=== PATIENT | female | born 1975 | race Caucasian/White ===

== ENCOUNTER 2016-12-16 05:40 | Emergency (ER) | payer OTHER ==
[~2016-12-16] VITALS: Ht 160 cm; Wt 79.4 kg
[2016-12-16] MEDS ORDERED: ZANT150T2 PO (06:17)
[2016-12-16] MEDS ORDERED: TYLE325T PO (06:17)
[2016-12-16] MEDS ORDERED: PREN1CAP28 PO (06:17)
--- NOTE | 2016-12-16 06:33 | PD ---
HPI Chief Complaint Contractions Date Seen: December 16, 2016 Travel History International Travel<30 Days: No Contact w/Intl Traveler<30Days: No Known Affected Area: No History of Present Illness HPI The patient is a 41-year-old white female a 2 now 37 weeks tomorrow who presents complaining of contractions that began last evening at 10 her time is continued through the night and now every 3-5 minutes and more regular. She describes as painful. No leakage or bleeding. Patient sees Dr. Rawls for care and she's to see him today scheduled. heart rate tracing is reactive and she is nikhil every 3 minutes. Para: 2 : 5 History Obstetric History Obstetric History 2 vaginal deliveries , 2 ABs Social History Alcohol Use: No Tobacco Use: No Substance Abuse: No Allergies-Medications (Allergen,Severity, Reaction): Coded Allergies: No Known Allergies (Unverified , 12/16/16) Home Meds Reported Medications Mv & Min W/Fe Fumarat ( Multi + Dha 27-0.8-250 mg)1 Cap Cap1 Cap PO DAILY 12/16/16 Acetaminophen (Tylenol)325 Mg [id number] Mg PO Q6H PRN (PAIN SCALE 1 TO 4) Ref 0 12/16/16 Ranitidine (Zantac)150 Mg Tab75 Mg PO DAILY #30 TAB Ref 0 12/16/16 Review of Systems General / Constitutional: No: Fever, Weight Gain, Chills, Other Eyes: No: Diploplia, Blurred Vision, Visual changes, Pain, Photophobia HENT: No: Headaches, Vertigo, Lightheadedness Cardiovascular: No: Irregular Rhythm, Chest Pain or Discomfort, Palpitations, Tachycardia, Syncope, Varicosities, Edema, Cyanosis Respiratory: No: Cough, Short of Breath, Other Gastrointestinal: Abdominal Pain, No: Nausea, Vomiting, Diarrhea Genitourinary: No: Decreased Urinary Output, Oliguria Musculoskeletal: No: Limited ROM, Weakness, Cramping, Edema, Pain Skin: No Rash, No Itching, No Dryness, No Lumps, No Change in Pigmentation, No Change in Nails, No Alopecia, No Lesions Neurologic: No: Weakness, Dizziness, Syncope, Focal Abnormalities, Coordination Problem, Headache, Slurred Speech, Seizures Psychiatric: No: Depression, Suicidal Ideations, Homicidal Ideation Endocrine: No: Heat Intolerance, Cold Intolerance, Polydipsia, Polyuria, Other Physical Exam Narrative GENERAL: Well-nourished, well-developed patient. SKIN: Warm and dry. HEAD: Normocephalic and atraumatic. EYES: No scleral icterus. No injection or drainage. ENT: No nasal drainage noted. Mucous membranes pink. Airway patent. NECK: Supple, trachea midline. No JVD. CARDIOVASCULAR: Regular rate and rhythm without murmurs, gallops, or rubs. RESPIRATORY: Breath sounds equal bilaterally. No accessory muscle use. BREASTS: Bilateral exam showed no masses , no retractions, no nipple discharge. ABDOMEN/GI: Abdomen soft, non-tender, bowel sounds present, no rebound, no guarding Gravid to [37-] weeks size Fundal Height: [36-] GENITOURINARY: External Genitalia: intact and normal in appearance BUS glands: [-] Cervix: [-] Dilatation: [0-] Effacement: [-50] Station: [-3] Presentation: [vtx-] Membranes: [intact ] Uterine Contractions: [ q 4 min-] FHT's: Category: [1-] Baseline: [-144] Reactive: [yes-] Variability: [-mod] Decels: [-0] EXTREMITIES: No cyanosis or edema. BACK: Nontender without obvious deformity. No CVA tenderness. NEUROLOGICAL: Awake and alert. Motor and sensory grossly within normal limits. Five out of 5 muscle strength in all muscle groups. Normal speech. MDM Interpretation(s) This patient is 41-year-old white female at 37 weeks tomorrow presents combining of contractions. Denies bleeding or leakage of fluid. heart rate tracing is reactive and she is nikhil every 3-4 minutes. However cervix is still closed 50% effaced and -3. Patient is to see Dr. Rawls later today. I recommended that she be at bedrest at home with Tylenol use liberally increase her fluids use a heating pad on low or hot bath for relief and return if her pains worsen Plan Plan to discharge home at this time return for worsening symptoms leakage or bleeding. Otherwise she is to see her OB provider today as scheduled Diagnosis Diagnosis: Primary Impression: False labor before 37 completed weeks of gestation during in third trimester, antepartum Disposition: DISCHARGE HOME Condition: Stable Viktor Alonso II, MD December 16, 2016 06:32
== END 2016-12-16 06:39 | disposition home or self-care (01) ==
LOC: HOBED 05:40
DX: O47.03 False labor before 37 completed weeks of gestation, third trimester (principal); Z3A.36 36 weeks gestation of pregnancy
CPT/HCPCS: 99284

== ENCOUNTER 2016-12-31 07:28 | Inpatient (IN) | payer OTHER ==
[2016-12-31] VITALS (72 sets, daily range): BP systolic 79–148; BP diastolic 42–100; PULSE 63–119; RESP 16–20; TEMP 97.6–98.6; O2SAT 97–99
[~2016-12-31] VITALS: Ht 160 cm; Wt 81.6 kg
[~2016-12-31 07:28] MED LIST: PREN1CAP28 PO; TYLE325T PO; ZANT150T2 PO
[2016-12-31] MEDS ORDERED: LACTATED RINGER'S 1000 ML INJ 1,000 ML IV PRN (08:53)
--- NOTE | 2016-12-31 08:53 | PD ---
HPI Chief Complaint leakage of fluid Travel History International Travel<30 Days: No Contact w/Intl Traveler<30Days: No Known Affected Area: No History of Present Illness HPI at 39w 0d presents with c/o LOF- clear at 0200. Denies contractions/VB. Reports good FM. care with Dr. Rawls. History Past Medical History Medical History: Denies Significant Hx Past Surgical History Surgical History: No Previous Surgery Family History Family History: Negative Social History Alcohol Use: No Tobacco Use: No Substance Abuse: No Allergies-Medications (Allergen,Severity, Reaction): Coded Allergies: No Known Allergies (Unverified , 12/31/16) Home Meds Reported Medications Mv & Min W/Fe Fumarat ( Multi + Dha 27-0.8-250 mg)1 Cap Cap1 Cap PO DAILY 12/16/16 Acetaminophen (Tylenol)325 Mg [id number] Mg PO Q6H PRN (PAIN SCALE 1 TO 4) Ref 0 12/16/16 Ranitidine (Zantac)150 Mg Tab75 Mg PO DAILY #30 TAB Ref 0 12/16/16 Review of Systems Except as stated in HPI: all other systems reviewed are Neg Physical Exam AFVSS BP 140/89 Narrative GENERAL: Well-nourished, well-developed patient. SKIN: Warm and dry. HEAD: Normocephalic and atraumatic. EYES: No scleral icterus. No injection or drainage. ENT: No nasal drainage noted. Mucous membranes pink. Airway patent. NECK: Supple, trachea midline. No JVD. CARDIOVASCULAR: Regular rate and rhythm without murmurs, gallops, or rubs. RESPIRATORY: Breath sounds equal bilaterally. No accessory muscle use. BREASTS: Bilateral exam showed no masses , no retractions, no nipple discharge. ABDOMEN/GI: Abdomen soft, non-tender, bowel sounds present, no rebound, no guarding Gravid to [-] weeks size Fundal Height: [-] GENITOURINARY: External Genitalia: intact and normal in appearance BUS glands: [-] Cervix: [-] Dilatation: [1] Effacement: [60] Station: [3] Presentation: [-] Membranes: [intact or ruptured] Uterine Contractions: [none] FHT's: Category: [1] Baseline: [130s] Reactive: [yes] Variability: [moderate] Decels: [none] EXTREMITIES: No cyanosis or edema. BACK: Nontender without obvious deformity. No CVA tenderness. NEUROLOGICAL: Awake and alert. Motor and sensory grossly within normal limits. Five out of 5 muscle strength in all muscle groups. Normal speech. Data Data Orders Ob (2e) Additional Admit Info (12/31/16 08:41) MDM Interpretation(s) at 39w 0d PROM, elevated BP. Plan Will admit. Pre Eclampsia labs ordered. Dr. Rawls notified. Diagnosis Diagnosis: Primary Impression: 39 weeks gestation of Additional Impressions: PROM (premature rupture of membranes) Hypertension affecting in third trimester Tina Hooker MD Dec 31, 2016 08:53
[2016-12-31] MEDS ORDERED: LIDOCAINE HCL 1% 50 ML VIAL I-DERMAL PRN (09:00)
[2016-12-31] MEDS ORDERED: MINERAL OIL 10 ML VIAL TOPICAL PRN (09:00)
[2016-12-31] MEDS ORDERED: CITRIC ACID-SODIUM CITRATE LIQ 30 ML UDC PO SCH (09:00)
[2016-12-31] MEDS ORDERED: LIDOCAINE HCL 1% 50 ML VIAL INFIL PRN (09:00)
[2016-12-31] MEDS ORDERED: OXYTOCIN 30 UNITS-500ML PREMIX 500 ML IV ONE ×2 (09:00→21:45)
[2016-12-31] MEDS ORDERED: SODIUM CHLORID 0.9% 500 ML INJ 500 ML IV PRN (09:00)
[2016-12-31 09:09] LABS: BASOPHIL % 0.5 % (0.0-2.0); EOSINOPHIL % 0.5 % (0.0-4.0); HEMO FLAGS DIFF FINAL; LYMPH % 15.4 % (9.0-44.0); LYMPHOCYTE # 1.4 TH/MM3 (1.0-4.8); MEAN CELL VOLUME 77.2 FL (80.0-100.0); MEAN CORPUSCULAR HEMOGLOBIN 25.7 PG (27.0-34.0); MEAN CORPUSCULAR HGB CONC 33.2 % (32.0-36.0); MONO % 6.1 % (0.0-8.0); NEUT % 77.5 % (16.0-70.0); PLATELET COUNT 211 TH/MM3 (150-450); RED BLOOD COUNT 4.01 MIL/MM3 (4.00-5.30); WHITE BLOOD COUNT 9.1 TH/MM3 (4.0-11.0)
[2016-12-31 09:10] LABS: BLOOD, URINE MOD (NEG); COMMENT (UR) CULT NOT INDICATED; CULTURE IF INDICATED CULT NOT INDICATED; GLUCOSE,URINE NEG (NEG); KETONE, URINE NEG (NEG); MUCUS URINE FEW /lpf (OCC); NITRITE,URINE NEG (NEG); PH, URINE 6.5 (5.0-8.5); SQUAMOUS EPITHELIAL CELL URINE 1 /hpf (0-5); URINE COLOR YELLOW (YELLW/STRAW)
[2016-12-31] MEDS ORDERED: SODIUM CHLOR 0.9% 1000 ML INJ 1,000 ML IV PRN (09:13)
[2016-12-31 09:30] LABS: ANION GAP 11 MEQ/L (5-15); AST (GOT) 15 U/L (15-37); BICARBONATE 21.2 MEQ/L (21.0-32.0); BLOOD UREA NITROGEN 11 MG/DL (7-18); CHLORIDE 105 MEQ/L (98-107); GLOMERULAR FILTRATION RATE 77 ML/MIN (>89); SODIUM (NA) 137 MEQ/L (136-145)
[2016-12-31 09:32] LABS: LDH SERUM 165 U/L (84-246); URIC ACID 6.6 MG/DL (2.6-6.0)
[2016-12-31 09:36] LABS: ALKALINE PHOSPHATASE 143 U/L (45-117); ALT (GPT) 13 U/L (10-53); TOTAL BILIRUBIN ADULT 0.6 MG/DL (0.2-1.0)
[2016-12-31] MEDS: LACTATED RINGER'S 1000 ML INJ 1,000 ML IV SCH ×3 (10:07→14:29)
[2016-12-31] MEDS ORDERED: OXYTOCIN 30 UNITS/NS 500ML PREMIX IV SCH (10:30)
[2016-12-31] MEDS ORDERED: fentaNYL 2MCG-BUPIV 0.125% INJ 100 ML ONE (13:13)
[2016-12-31] MEDS ORDERED: ePHEDrine/NS 25 MG/5 ML SYR ONE (13:13)
[2016-12-31] MEDS ORDERED: DO NOT ADMINISTER ANTICOAGULANTS PRN (15:30)
[2016-12-31] MEDS ORDERED: ePHEDrine/NS 25 MG/5 ML SYR IV PRN (15:30)
[2016-12-31] MEDS ORDERED: NO SYSTEM NARCOTICS PRN (15:30)
[2016-12-31] MEDS: fentaNYL 2MCG-BUPIV 0.125% 100 ML EPIDURAL SCH ×2 (19:10→19:11)
[2016-12-31] MEDS ORDERED: LIDOCAINE HCL 1.5% PF SOLN 20 ML AMP ONE (19:21)
[2016-12-31] MEDS ORDERED: ONDANSETRON HCL 4 MG/2 ML VIAL ONE (20:06)
[2016-12-31] MEDS ORDERED: MORPHINE SULFATE PF 5 MG/10 ML VIAL ONE (20:06)
[2016-12-31] MEDS ORDERED: OXYTOCIN 10 UNIT/ML AMP ONE (20:07)
[2016-12-31] MEDS ORDERED: ceFAZolin 2 GM PREMIX 50 ML IV SCH (20:15)
--- NOTE | 2016-12-31 21:40 | HHI.HP ---
HPI Chief Complaint leaking fluid Date Seen: Dec 31, 2016 Travel History International Travel<30 Days: No Contact w/Intl Traveler<30Days: No Known Affected Area: No History of Present Illness HPI Patient is a 41 year old at 39-0/7 weeks gestation who presents today with leaking of fluid. The fluid was clear and it started leaking at 0200. She denies any vaginal bleeding or discharge. No contractions. Positive movement. History Past Medical History Medical History: Denies Significant Hx Obstetric History Obstetric History x 2 Past Surgical History Surgical History: No Previous Surgery Family History Family History: Negative Social History Alcohol Use: No Tobacco Use: No Substance Abuse: No Allergies-Medications (Allergen,Severity, Reaction): Coded Allergies: No Known Allergies (Unverified , 12/31/16) Home Meds Reported Medications Mv & Min W/Fe Fumarat ( Multi + Dha 27-0.8-250 mg)1 Cap Cap1 Cap PO DAILY 12/16/16 Acetaminophen (Tylenol)325 Mg [id number] Mg PO Q6H PRN (PAIN SCALE 1 TO 4) Ref 0 12/16/16 Ranitidine (Zantac)150 Mg Tab75 Mg PO DAILY #30 TAB Ref 0 12/16/16 Review of Systems Except as stated in HPI: all other systems reviewed are Neg General / Constitutional: No: Fever, Chills Eyes: No: Blurred Vision, Visual changes HENT: No: Headaches Cardiovascular: No: Chest Pain or Discomfort Respiratory: No: Short of Breath Gastrointestinal: No: Nausea, Abdominal Pain Genitourinary: Discharge, No: Pelvic Pain, Vaginal Bleeding Musculoskeletal: No: Edema Neurologic: No: Headache Psychiatric: No: Substance Abuse Physical Exam Vital Signs Date Time Temp Pulse Resp B/P Pulse Ox O2 Delivery O2 Flow Rate FiO2 12/31/16 19:15 20 12/31/16 19:03 97.6 12/31/16 18:25 85 12/31/16 18:20 81 12/31/16 18:20 74 131/100 12/31/16 18:15 18 12/31/16 18:15 80 12/31/16 18:10 85 12/31/16 18:05 82 12/31/16 18:00 86 125/82 12/31/16 18:00 84 12/31/16 17:55 75 12/31/16 17:50 81 17 17:45 83 17 17:41 85 125/72 17 17:40 93 17 17:35 76 17 17:34 18 17 17:30 98.6 17 17:30 77 1417 17:25 80 17 17:20 84 1417 17:20 80 131/76 17 17:15 18 12/31/16 17:15 82 12/31/16 17:10 79 12/31/16 17:05 81 12/31/16 17:01 95 137/65 12/31/16 17:00 84 12/31/16 16:55 86 12/31/16 16:50 83 12/31/16 16:45 77 12/31/16 16:42 17 12/31/16 16:40 75 12/31/16 16:35 71 12/31/16 16:30 71 12/31/16 16:10 69 18 12/31/16 16:05 68 12/31/16 16:04 70 128/75 12/31/16 16:00 75 12/31/16 15:55 70 12/31/16 15:50 71 12/31/16 15:45 73 12/31/16 15:25 74 17 12/31/16 15:24 72 124/71 17 15:21 63 12/31/16 15:20 67 12/31/16 15:15 18 12/31/16 15:15 66 12/31/16 15:10 70 17 15:05 65 12/31/16 15:01 72 125/82 12/31/16 15:00 72 12/31/16 15:00 17 12/31/16 14:55 72 12/31/16 14:50 71 17 14:45 17 17 14:45 71 17 14:40 70 1417 14:40 74 129/66 1417 14:35 71 1417 14:30 17 1417 14:30 70 118/71 1417 14:30 69 6/14/17 14:30 98.6 12/31/16 14:25 64 12/31/16 14:21 74 118/66 12/31/16 14:20 68 12/31/16 14:15 71 12/31/16 14:15 71 121/61 12/31/16 14:12 72 117/63 12/31/16 14:10 75 12/31/16 14:10 71 126/65 12/31/16 14:05 78 122/67 12/31/16 14:05 72 12/31/16 14:01 119 123/92 12/31/16 14:00 75 12/31/16 13:55 74 12/31/16 13:55 69 125/77 12/31/16 13:51 69 132/77 12/31/16 13:50 71 12/31/16 13:45 78 148/79 12/31/16 13:45 18 12/31/16 13:45 79 12/31/16 11:32 69 123/71 Narrative GENERAL: Well-nourished, well-developed patient. SKIN: Warm and dry. HEAD: Normocephalic and atraumatic. EYES: No scleral icterus. No injection or drainage. ENT: No nasal drainage noted. Mucous membranes pink. Airway patent. NECK: Supple, trachea midline. No JVD. CARDIOVASCULAR: Regular rate and rhythm without murmurs, gallops, or rubs. RESPIRATORY: Breath sounds equal bilaterally. No accessory muscle use. ABDOMEN/GI: Abdomen soft, non-tender, bowel sounds present, no rebound, no guarding Gravid to 40 weeks size GENITOURINARY: External Genitalia: intact and normal in appearance BUS glands: normal Cervix: posterior Dilatation: 1 Effacement: 60 Station: 3 Presentation: vertx Membranes: ruptured with clear fluid Uterine Contractions: none FHT's: Category: I Baseline: 130 Reactive: + Variability: moderate Decels: none EXTREMITIES: No cyanosis or edema. BACK: Nontender without obvious deformity. No CVA tenderness. NEUROLOGICAL: Awake and alert. Motor and sensory grossly within normal limits. Normal speech. Data Data Vital Signs Reviewed: Yes Orders Ob (2e) Additional Admit Info (12/31/16 08:41) Admit To Inpatient (12/31/16 ) Code Status (12/31/16 08:53) Vital Signs (Adult) .Per protocol (12/31/16 08:53) Heart (12/31/16 08:53) Amnioinfusion (12/31/16 08:53) Diet Npo (12/31/16 Breakfast) Lactated Ringer's 1000 Ml Inj (Lr 1000 M (12/31/16 09:00) Lactated Ringer's 1000 Ml Inj (Lr 1000 M (12/31/16 08:53) Sodium Chlorid 0.9% 500 Ml Inj (Ns 500 M (12/31/16 09:00) Sodium Chlor 0.9% 1000 Ml Inj (Ns 1000 M (12/31/16 09:13) Lidocaine 1% Inj (50 Ml) (Xylocaine 1% I (12/31/16 09:00) Citric Acid-Sodium Citrate Liq (Bicitra (12/31/16 09:00) Fentanyl Inj (Fentanyl Inj) (12/31/16 09:00) Fentanyl Inj (Fentanyl Inj) (12/31/16 09:00) Complete Blood Count With Diff (12/31/16 08:53) Hold Clot (12/31/16 08:53) Abo/Rh Blood Type (12/31/16 08:53) Urinalysis - C+S If Indicated (12/31/16 08:53) Resp Oxygen Non Rebreathe Mask (12/31/16 ) ^ Epidural / Intrathecal Infus (12/31/16 08:53) Oxytocin 30 Units-500ml Premix (Pitocin (12/31/16 09:00) Lidocaine 1% Inj (50 Ml) (Xylocaine 1% I (12/31/16 09:00) Light Mineral Oil (Muri-Lube Oil) (12/31/16 09:00) Inpatient Certification (12/31/16 ) Comprehensive Metabolic Panel (12/31/16 08:55) Ldh Serum (12/31/16 08:55) Uric Acid (12/31/16 08:55) Oxytocin 30 Units-500ml Premix (Pitocin (12/31/16 10:30) Fentanyl 2mcg-Bupiv 0.125% Inj (Fentanyl (12/31/16 13:13) Ephedrine/Ns 25 Mg/5 Ml Syr (Ephedrine/N (12/31/16 13:13) ^ Place On Chart (12/31/16 ) ^ Medication Indications (12/31/16 ) Consent (12/31/16 ) ^ No Systemic Narcotics (12/31/16 ) ^ Call Anesthesiologist (12/31/16 ) ^ Discontinue Epidural Cathete (12/31/16 ) Anticoagulant Alert (12/31/16 ) ^ Epidural Alert (12/31/16 ) Misc Nursing Information (12/31/16 15:30) Misc Nursing Information (12/31/16 15:30) Fentanyl Inj (Fentanyl Inj) (12/31/16 15:30) Fentanyl 2mcg-Bupiv 0.125% Inj (Fentanyl (12/31/16 15:30) Ephedrine/Ns 25 Mg/5 Ml Syr (Ephedrine/N (12/31/16 15:30) Lidocaine Pf 1.5% Inj (Xylocaine-Mpf 1.5 (12/31/16 19:21) Heart (12/31/16 19:58) Urinary Catheter Management DANIELITO.Q8H (12/31/16 19:58) ^ Preps (12/31/16 19:58) Scd / Rodrigo / Foot Pump DANIELITO.QSHIFT (12/31/16 19:58) ^ Ultrasound For Locatio (12/31/16 19:58) Morphine Pf Inj (Duramorph Pf 0.5 Mg/Ml (12/31/16 20:06) Ondansetron Inj (Zofran Inj) (12/31/16 20:06) Oxytocin Inj (Pitocin Inj) (12/31/16 20:07) Cefazolin 2 Gm Premix (Ancef 2 Gm Premix (12/31/16 20:15) Vital Signs (Adult) Q4HX24,Q12H (12/31/16 21:33) Activity Bed Rest (12/31/16 21:33) ^ Discontinue (01/01/17 21:33) Remove Dressing (01/01/17 21:33) ^ Binder (12/31/16 ) ^ Rhogam (12/31/16 21:33) Diet Regular Basic (01/01/17 Breakfast) Lactated Ringer's 1000 Ml Inj (Lr 1000 M (01/01/17 02:33) Oxytocin 30 Units-500ml Premix (Pitocin (12/31/16 21:45) Oxytocin 30 Units-500ml Premix (Pitocin (01/01/17 07:45) Sodium Chloride 0.9% Flush (Ns Flush) (01/01/17 09:00) Sodium Chloride 0.9% Flush (Ns Flush) (12/31/16 21:45) Simethicone Chew (Mylicon Chew) (12/31/16 21:45) Acetaminophen (Tylenol) (12/31/16 21:45) Acetaminophen Inj (Ofirmev Inj) (12/31/16 21:45) Ibuprofen (Motrin) (12/31/16 21:45) Ketorolac Inj (Toradol Inj) (12/31/16 21:45) Oxycodone-Acetamin 5-325 Mg (Percocet (12/31/16 21:45) Oxycodone-Acetamin 5-325 Mg (Percocet (12/31/16 21:45) Docusate Sodium-Senna (Staci-Colace) (12/31/16 21:45) Zolpidem (Ambien) (12/31/16 21:45) Gaxbxoq-Dubee-Akzdqdf Inj (M-M-R Ii Inj) (01/01/17 16:00) Alzj-Yef-Yjnxic (Booster) Inj (Boostrix (01/01/17 16:00) Complete Blood Count With Diff (01/01/17 06:00) Ondansetron Inj (Zofran Inj) (12/31/16 21:45) Remove Urinary Catheter .ONCE (01/01/17 21:33) Labs Laboratory Tests Test 12/31/16 12/31/16 08:00 08:23 Urine Color YELLOW Urine Turbidity CLEAR Urine pH 6.5 Urine Specific [place] 1.020 Urine Protein TRACE Urine Glucose (UA) NEG Urine Ketones NEG Urine Occult Blood MOD Urine Nitrite NEG Urine Bilirubin NEG Urine Urobilinogen 2.0 Urine Leukocyte Esterase NEG Urine RBC 1 Urine WBC 2 Urine Squamous Epithelial 1 Cells Urine Mucus FEW Microscopic Urinalysis Comment CULT NOT INDICATED White Blood Count 9.1 Red Blood Count 4.01 Hemoglobin 10.3 Hematocrit 31.0 Mean Corpuscular Volume 77.2 Mean Corpuscular Hemoglobin 25.7 Mean Corpuscular Hemoglobin 33.2 Concent Red Cell Distribution Width 16.0 Platelet Count 211 Mean Platelet Volume 8.7 Neutrophils (%) (Auto) 77.5 Lymphocytes (%) (Auto) 15.4 Monocytes (%) (Auto) 6.1 Eosinophils (%) (Auto) 0.5 Basophils (%) (Auto) 0.5 Neutrophils # (Auto) 7.0 Lymphocytes # (Auto) 1.4 Monocytes # (Auto) 0.6 Eosinophils # (Auto) 0.0 Basophils # (Auto) 0.0 CBC Comment DIFF FINAL Differential Comment Sodium Level 137 Potassium Level 4.0 Chloride Level 105 Carbon Dioxide Level 21.2 Anion Gap 11 Blood Urea Nitrogen 11 Creatinine 0.82 Estimat Glomerular Filtration 77 Rate Random Glucose 93 Uric Acid 6.6 Calcium Level 7.9 Total Bilirubin 0.6 Aspartate Amino Transf 15 (AST/SGOT) Alanine Aminotransferase 13 (ALT/SGPT) Alkaline Phosphatase 143 Lactate Dehydrogenase 165 Total Protein 6.3 Albumin 2.4 Blood Type O POSITIVE Blood Bank Comment Band and Hold HOLD CLOT IN BB Assessment/Plan Assessment and Plan 41 year old at 39-0/7 weeks gestation. 1. IUP- Category I tracing, reassuring. 2. SROM- clear fluid, augment labor as needed 3. Elevated BP- BP initially elevated at 140/89, uric acid, cmp, cbc, ua pending 4. GBS negative 5. Anticipate vaginal delivery. anastasiiaw Mel Grajeda MD R2 Dec 31, 2016 21:40
[2016-12-31] MEDS ORDERED: ACETAMINOPHEN 1000 MG/100 ML VIAL IV ONE ×2 (21:45→21:54)
[2016-12-31] MEDS ORDERED: oxyCODONE/ACETAMINOPHEN 5 MG/325 MG TAB PO PRN (21:45)
[2016-12-31] MEDS ORDERED: SODIUM CHLORIDE 0.9% FLUSH 10 ML FLUSH IV FLUSH PRN (21:45)
[2016-12-31] MEDS ORDERED: KETOROLAC TROMETHAMINE 60 MG/2 ML (IM) VIAL IM PRN (21:45)
[2016-12-31] MEDS ORDERED: ZOLPIDEM TARTRATE 5 MG TAB PO PRN (21:45)
[2016-12-31] MEDS ORDERED: ACETAMINOPHEN 325 MG TAB PO PRN (21:45)
[2016-12-31] MEDS ORDERED: DOCUSATE SODIUM 50 MG/SENNA 8.6 MG TAB PO PRN (21:45)
--- NOTE | 2016-12-31 21:49 | PD.OP ---
Operative Report Date of Surgery: Dec 31, 2016 Preoperative Diagnosis: (1) 39 weeks gestation of (2) Failure to progress in labor Postoperative Diagnosis: (1) 39 weeks gestation of (2) Failure to progress in labor Procedure: Primary Low Transverse Section Surgeon: Dr. Sreedhar Rawls Tuyere Fitter(s): Cassie Watson and Jesica Hernández Resident Surgeon: Dr. Mel Fraser PGY-2 Operation and Findings: Preoperative Diagnosis: 1. Failure to Progress in Labor 2. Intrauterine at 39-0/7 weeks gestation Postoperative Diagnosis: 1. Failure to Progress in Labor 2. Intrauterine at 39-0/7 weeks gestation Procedure Primary low transverse section. Anesthesia Spinal Surgeon Sreedhar Rawls MD Co-Surgeon Mel Fraser MD Findings Normal male infant 3940g with Apgars 8 and 9. Normal fallopian tubes, normal ovaries, normal uterus. Complications None. Counts Correct Estimated Blood Loss 800mL Fluids Crystalloids. Disposition The patient tolerated procedure well, went to recovery room in good condition. Procedure in Detail The patient was taken to the operating room, identified by name band and verbally given a spinal anesthetic, prepped and draped in the usual sterile fashion for a primary section. Time-out was taken. A Pfannenstiel incision was made. The incision as taken down to the fascia. The fascia was taken off the rectus muscles by blunt and sharp dissection. The rectus muscles were spread bluntly and the peritoneum entered under direct vision without difficulty. The incision was extended with care to avoid the urinary bladder. The lower uterine segment was identified and a bladder flap was created in the usual fashion, pushing the peritoneum off the bladder. The incision on the uterus was made in a transverse manner and taken down in the midline until the uterine cavity was entered. Clear fluid was noted and the incision was extended with the surgeon's fingers. The fetus was noted to be in vertex position. The infant was subsequently delivered atraumatically. The cord was doubly clamped and cut after a 45-second wait period. The baby was handed to the resuscitation team present. The placenta was removed manually after cord blood was taken and the uterus was curettaged twice with a wet lap. The uterus was delivered from the abdomen. The uterine incision was found to be extended inferiorly and laterally and was repaired with 0 Vicryl. The rest of the uterine incision was then repaired with a 0 Vicryl in a running fashion in two layers, the second layer imbricating the first. The cul-de-sac and gutters were cleaned of blood and debris, the uterus delivered back into the abdomen. The incision was dry. At this point the rectus muscles were reapproximated with 0 Vicryl in a running fashion. The fascia was repaired with 0 Vicryl in a running fashion. The subcu was repaired with 3-0 Vicryl in a running fashion and the skin was repaired with 4-0 Monocryl in a subcuticular manner. She tolerated the procedure well and went to the recovery room in good condition. Mel Fraser MD R2 Dec 31, 2016 21:49
[2016-12-31] MEDS ORDERED: PROPOFOL 200 MG/20 ML AMP IV ONE (22:05)
[2016-12-31] MEDS ORDERED: LIDOCAINE 2%/EPINEPHrine PF 1:200,000 20ML SDV OTHER ONE (22:05)
[2016-12-31] MEDS ORDERED: DEXAMETHASONE SOD PHOS 4 MG/ML VIAL IV ONE (22:05)
[2016-12-31] MEDS ORDERED: LACTATED RINGER'S 1000 ML INJ 1,000 ML IV ONE (22:05)
[2017-01-01] MEDS ORDERED: LACTATED RINGER'S 1000 ML INJ 1,000 ML IV SCH (02:33)
[2017-01-01] MEDS: ONDANSETRON HCL 4 MG/2 ML VIAL IV PUSH PRN ×2 (03:58→07:58)
[2017-01-01 04:00] VITALS: BP 106/88; PULSE 84; RESP 20; TEMP 97.9
[2017-01-01 05:51] VITALS: RESP 16
[2017-01-01 05:55] LABS: AUTOMATED NEUTROPHIL # 13.7 TH/MM3 (1.8-7.7); BASOPHIL % 0.2 % (0.0-2.0); LYMPH % 4.1 % (9.0-44.0); LYMPHOCYTE # 0.6 TH/MM3 (1.0-4.8); MEAN CELL VOLUME 77.8 FL (80.0-100.0); MEAN CORPUSCULAR HEMOGLOBIN 25.1 PG (27.0-34.0); MEAN CORPUSCULAR HGB CONC 32.3 % (32.0-36.0); MONO % 4.7 % (0.0-8.0); PLATELET COUNT 159 TH/MM3 (150-450); RED BLOOD COUNT 2.43 MIL/MM3 (4.00-5.30)
[2017-01-01 06:00] LABS: HEMATOCRIT 18.9 % (35.0-46.0)
[2017-01-01 06:08] LABS: HEMO FLAGS DIFF FINAL
[2017-01-01 06:29] LABS: AUTOMATED NEUTROPHIL # 14.6 TH/MM3 (1.8-7.7); BASOPHIL % 0.2 % (0.0-2.0); LYMPHOCYTE # 0.6 TH/MM3 (1.0-4.8); MEAN CELL VOLUME 77.8 FL (80.0-100.0); MEAN CORPUSCULAR HGB CONC 32.2 % (32.0-36.0); MONO % 4.8 % (0.0-8.0); PLATELET COUNT 172 TH/MM3 (150-450); RED BLOOD COUNT 2.42 MIL/MM3 (4.00-5.30)
[2017-01-01 06:38] LABS: HEMO FLAGS DIFF FINAL
[2017-01-01 06:39] LABS: HEMATOCRIT 18.8 % (35.0-46.0)
--- NOTE | 2017-01-01 07:44 | HHI.OB ---
Subjective Post Operative Day: 1 Remarks Doing ok. No chest pain, SOB or chest pressure. Nausea and she vomited X3 last nite. Will repeat the zofran now. Slowly advance diet. Pain is well controlled she is not taking much for pain. Objective Vitals/I&O Vital Signs Date Time Temp Pulse Resp B/P Pulse Ox O2 Delivery O2 Flow Rate FiO2 01/01/17 05:51 16 01/01/17 04:00 106/88 01/01/17 04:00 97.9 84 20 12/31/16 23:15 98.3 12/31/16 23:15 85 18 92/59 12/31/16 22:30 98.3 12/31/16 22:30 109 18 113/55 99 12/31/16 22:15 115/90 12/31/16 22:15 101 18 99 12/31/16 22:00 103 79/50 12/31/16 22:00 16 99 12/31/16 21:48 96 16 97 12/31/16 21:48 80/42 12/31/16 21:30 97.9 98 12/31/16 21:30 101 16 79/53 12/31/16 19:15 20 12/31/16 19:03 97.6 12/31/16 18:25 85 12/31/16 18:20 81 12/31/16 18:20 74 131/100 12/31/16 18:15 18 12/31/16 18:15 80 12/31/16 18:10 85 12/31/16 18:05 82 12/31/16 18:00 86 125/82 12/31/16 18:00 84 12/31/16 17:55 75 12/31/16 17:50 81 12/31/16 17:45 83 12/31/16 17:41 85 125/72 12/31/16 17:40 93 12/31/16 17:35 76 12/31/16 17:34 18 12/31/16 17:30 98.6 12/31/16 17:30 77 12/31/16 17:25 80 12/31/16 17:20 84 12/31/16 17:20 80 131/76 12/31/16 17:15 18 12/31/16 17:15 82 12/31/16 17:10 79 12/31/16 17:05 81 12/31/16 17:01 95 137/65 12/31/16 17:00 84 12/31/16 16:55 86 12/31/16 16:50 83 17 16:45 77 17 16:42 17 12/31/16 16:40 75 12/31/16 16:35 71 12/31/16 16:30 71 12/31/16 16:10 69 18 12/31/16 16:05 68 12/31/16 16:04 70 128/75 12/31/16 16:00 75 12/31/16 15:55 70 12/31/16 15:50 71 12/31/16 15:45 73 12/31/16 15:25 74 17 12/31/16 15:24 72 124/71 12/31/16 15:21 63 12/31/16 15:20 67 12/31/16 15:15 18 12/31/16 15:15 66 12/31/16 15:10 70 12/31/16 15:05 65 12/31/16 15:01 72 125/82 12/31/16 15:00 72 12/31/16 15:00 17 12/31/16 14:55 72 12/31/16 14:50 71 12/31/16 14:45 17 12/31/16 14:45 71 12/31/16 14:40 70 12/31/16 14:40 74 129/66 12/31/16 14:35 71 12/31/16 14:30 17 12/31/16 14:30 70 118/71 12/31/16 14:30 69 17 14:30 98.6 17 14:25 64 1417 14:21 74 118/66 1417 14:20 68 1417 14:15 71 1417 14:15 71 121/61 1417 14:12 72 117/63 1417 14:10 75 17 14:10 71 126/65 1417 14:05 78 122/67 14 14:05 72 1417 14:01 119 123/92 1417 14:00 75 12/31/16 13:55 74 12/31/16 13:55 69 125/77 12/31/16 13:51 69 132/77 12/31/16 13:50 71 12/31/16 13:45 78 148/79 12/31/16 13:45 18 12/31/16 13:45 79 12/31/16 11:32 69 123/71 Result Diagram: 01/01/17 0624 12/31/16 0823 Objective Remarks GENERAL: Well-nourished, well-developed patient. CARDIOVASCULAR: Regular rate and rhythm without murmurs, gallops, or rubs. RESPIRATORY: Breath sounds equal bilaterally. No accessory muscle use. ABDOMEN/GI: Abdomen soft, non-tender, bowel sounds present. Incision: Clean, dry and intact. Fundus: Firm, non-tender at umbilicus. GENITOURINARY: Light to moderate bleeding. EXTREMITIES: No cyanosis or edema, non-tender, without signs of DVT. Medications and IVs Current Medications Medications (Trade) Dose Ordered Sig/Destiny Route Start Time Stop Time Status Last Admin (Lr 1000 ml Inj) 1,000 ml @ 100 mls/hr Q10H IV 01/01/17 02:33 01/01/17 22:32 01/01/17 01:23 (Mylicon Chew) 80 mg QID PRN PO 12/31/16 21:45 (Tylenol) 650 mg Q6H PRN PO 12/31/16 21:45 (Motrin) 600 mg Q6H PRN PO 12/31/16 21:45 (Toradol Inj) 30 mg Q6H PRN IM 12/31/16 21:45 01/01/17 21:44 (Percocet 5-325 Mg) 1 tab Q4H PRN PO 12/31/16 21:45 (Percocet 5-325 Mg) 2 tab Q4H PRN PO 12/31/16 21:45 (Staci-Colace) 2 tab Q12H PRN PO 12/31/16 21:45 (Ambien) 5 mg HS PRN PO 12/31/16 21:45 (M-M-R Ii Inj) 0.5 ml ONCE ONCE SQ 01/01/17 16:00 01/01/17 16:01 (Zofran Inj) 4 mg Q6H PRN IV PUSH 12/31/16 21:45 01/01/17 03:58 Assessment/Plan Assessment and Plan POD #1 severe anemia.. repeat H/H verified. will consider blood follow up closely Sreedhar Rawls MD Jan 01, 2017 07:44
[2017-01-01] MEDS ORDERED: OXYTOCIN 30 UNITS-500ML PREMIX 500 ML IV PRN (07:45)
[2017-01-01] MEDS ORDERED: ONDANSETRON HCL 4 MG/2 ML VIAL IV PUSH ONE (08:00)
[2017-01-01 08:18] VITALS: BP 108/60; PULSE 88; RESP 18; TEMP 98.1
[2017-01-01] MEDS ORDERED: SODIUM CHLORIDE 0.9% FLUSH 10 ML FLUSH IV FLUSH SCH (09:00)
[2017-01-01] MEDS: LACTATED RINGER'S 1000 ML INJ 1,000 ML IV SCH (09:30)
[2017-01-01] MEDS: DOCUSATE SODIUM 50 MG/SENNA 8.6 MG TAB PO SCH ×2 (09:45→13:56)
[2017-01-01] MEDS: IRON SUCROSE INJ 200 MG in SODIUM CHLORIDE 0.9% INJ 100 ML IV SCH (09:47)
[2017-01-01] MEDS: IBUPROFEN 600 MG TAB PO PRN ×2 (13:56→20:28)
[2017-01-01] MEDS ORDERED: MEASLES, MUMPS, RUBELLA VACCINE 0.5 ML VIAL SQ ONE (16:00)
[2017-01-01] MEDS ORDERED: DIPHTH/TETANUS/ACEL PERTUSSIS (BOOSTER) 0.5 ML VIAL/PFS IM ONE ×2 (16:00→22:30)
[2017-01-01 20:20] VITALS: BP 114/54; PULSE 111; RESP 18; TEMP 98.2
[2017-01-02] VITALS (10 sets, daily range): BP systolic 100–128; BP diastolic 58–88; PULSE 89–108; RESP 14–18; TEMP 97.8–98.2; O2SAT 99–100
[2017-01-02] MEDS: IBUPROFEN 600 MG TAB PO PRN ×3 (02:17→17:59)
[2017-01-02 06:10] LABS: AUTOMATED NEUTROPHIL # 10.7 TH/MM3 (1.8-7.7); BASOPHIL % 0.1 % (0.0-2.0); EOSINOPHIL % 0.1 % (0.0-4.0); LYMPH % 8.6 % (9.0-44.0); LYMPHOCYTE # 1.1 TH/MM3 (1.0-4.8); MEAN CELL VOLUME 78.2 FL (80.0-100.0); MEAN CORPUSCULAR HEMOGLOBIN 25.1 PG (27.0-34.0); MONO % 5.9 % (0.0-8.0); NEUT % 85.3 % (16.0-70.0); PLATELET COUNT 152 TH/MM3 (150-450); RED BLOOD COUNT 1.89 MIL/MM3 (4.00-5.30); RED CELL DISTRIBUTION WIDTH 16.3 % (11.6-17.2); WHITE BLOOD COUNT 12.6 TH/MM3 (4.0-11.0)
[2017-01-02 06:20] LABS: HEMO FLAGS DIFF FINAL
[2017-01-02 06:23] LABS: HEMATOCRIT 14.8 % (35.0-46.0)
[2017-01-02] MEDS: oxyCODONE/ACETAMINOPHEN 5 MG/325 MG TAB PO PRN ×3 (07:34→17:59)
--- NOTE | 2017-01-02 08:07 | HHI.OB ---
Subjective Post Operative Day: 2 Remarks I do not feel so well, No chest pain or pressure or SOB. I feel weak and dizzy. Baby is doing very well and is on the lights. Objective Vitals/I&O Vital Signs Date Time Temp Pulse Resp B/P Pulse Ox O2 Delivery O2 Flow Rate FiO2 01/01/17 20:20 98.2 111 18 114/54 01/01/17 08:18 98.1 18 01/01/17 08:18 88 108/60 Result Diagram: 01/02/17 0512 12/31/16 0823 Objective Remarks GENERAL: Well-nourished, well-developed patient. She looks pale today CARDIOVASCULAR: Regular rate and rhythm without murmurs, gallops, or rubs. RESPIRATORY: Breath sounds equal bilaterally. No accessory muscle use. ABDOMEN/GI: Abdomen soft, non-tender, bowel sounds present. Incision: Clean, dry and intact. Fundus: Firm, non-tender at umbilicus. GENITOURINARY: Light to moderate bleeding. EXTREMITIES: No cyanosis, non-tender, without signs of DVT. +2 LE swelling Medications and IVs Current Medications Medications (Trade) Dose Ordered Sig/Destiny Route Start Time Stop Time Status Last Admin (Mylicon Chew) 80 mg QID PRN PO 12/31/16 21:45 (Tylenol) 650 mg Q6H PRN PO 12/31/16 21:45 (Motrin) 600 mg Q6H PRN PO 12/31/16 21:45 01/02/17 07:35 (Percocet 5-325 Mg) 1 tab Q4H PRN PO 12/31/16 21:45 01/02/17 07:34 (Percocet 5-325 Mg) 2 tab Q4H PRN PO 12/31/16 21:45 (Ambien) 5 mg HS PRN PO 12/31/16 21:45 (Zofran Inj) 4 mg Q6H PRN IV PUSH 12/31/16 21:45 01/01/17 07:58 Senna/Docusate Sodium 2 tab 2 tab Q12H PO 01/01/17 09:45 01/01/17 13:56 Iron Sucrose 200 mg/Sodium Chloride 110 ml @ 110 mls/hr DAILY IV 01/01/17 09:00 01/03/17 09:59 01/01/17 09:47 (Lr 1000 ml Inj) 1,000 ml @ 200 mls/hr Q5H IV 01/01/17 08:00 01/01/17 09:30 Assessment/Plan Assessment and Plan POD #2 severe anemia.. she needs blood as she is now symptomatic will give 2 units of PRBCs now. Will check the cbc in the am Sreedhar Rawls MD Jan 02, 2017 08:07
[2017-01-02] MEDS: IRON SUCROSE INJ 200 MG in SODIUM CHLORIDE 0.9% INJ 100 ML IV SCH (09:00)
[2017-01-02 09:37] LABS: REVIEW FLAG FINAL
[2017-01-02 09:40] LABS: HEMATOCRIT 15.2 % (35.0-46.0)
[2017-01-02] MEDS: DOCUSATE SODIUM 50 MG/SENNA 8.6 MG TAB PO SCH ×2 (12:11→20:44)
[2017-01-02] MEDS ORDERED: ACETAMINOPHEN 325 MG TAB PO ONE (18:00)
[2017-01-02] MEDS ORDERED: diphenhydrAMINE HCL 25 MG CAP PO ONE (18:00)
[2017-01-02 23:08] LABS: REVIEW FLAG FINAL
[2017-01-02 23:13] LABS: HEMATOCRIT 19.9 % (35.0-46.0)
[2017-01-03 00:06] VITALS: BP 115/72; PULSE 80; RESP 14; TEMP 98.2; O2SAT 97
[2017-01-03 00:35] VITALS: BP 117/80; PULSE 82; RESP 16; TEMP 98; TEMP 98.4; O2SAT 96
[2017-01-03] MEDS: IBUPROFEN 600 MG TAB PO PRN ×3 (03:25→18:34)
[2017-01-03] MEDS: SIMETHICONE 80 MG CHEWABLE TAB PO PRN ×2 (03:26→18:33)
[2017-01-03] MEDS: oxyCODONE/ACETAMINOPHEN 5 MG/325 MG TAB PO PRN ×4 (03:26→18:34)
[2017-01-03 06:55] LABS: AUTOMATED NEUTROPHIL # 10.2 TH/MM3 (1.8-7.7); BASOPHIL # 0.1 TH/MM3 (0-0.2); BASOPHIL % 0.4 % (0.0-2.0); EOSINOPHIL # 0.2 TH/MM3 (0-0.4); EOSINOPHIL % 1.8 % (0.0-4.0); HEMATOCRIT 24.6 % (35.0-46.0); HEMO FLAGS DIFF FINAL; LYMPH % 13.1 % (9.0-44.0); LYMPHOCYTE # 1.7 TH/MM3 (1.0-4.8); MEAN CELL VOLUME 82.2 FL (80.0-100.0); MEAN CORPUSCULAR HEMOGLOBIN 26.9 PG (27.0-34.0); MEAN CORPUSCULAR HGB CONC 32.7 % (32.0-36.0); MONO % 5.2 % (0.0-8.0); NEUT % 79.5 % (16.0-70.0); PLATELET COUNT 147 TH/MM3 (150-450); RED BLOOD COUNT 2.99 MIL/MM3 (4.00-5.30); RED CELL DISTRIBUTION WIDTH 16.3 % (11.6-17.2); WHITE BLOOD COUNT 12.9 TH/MM3 (4.0-11.0)
[2017-01-03] MEDS: IRON SUCROSE INJ 200 MG in SODIUM CHLORIDE 0.9% INJ 100 ML IV SCH (08:23)
[2017-01-03] MEDS: DOCUSATE SODIUM 50 MG/SENNA 8.6 MG TAB PO SCH ×2 (08:23→21:50)
[2017-01-03 08:45] VITALS: BP 136/72; PULSE 95; RESP 16; TEMP 97.7
--- NOTE | 2017-01-03 09:28 | HHI.OB ---
Subjective Post Operative Day: 3 Remarks Had drop in HCT post op and received third unit this am. feeling better but still weak has not yet had a bowel movement Objective Vitals/I&O Vital Signs Date Time Temp Pulse Resp B/P Pulse Ox O2 Delivery O2 Flow Rate FiO2 01/03/17 00:35 82 16 117/80 01/03/17 00:35 98.4 96 01/03/17 00:35 98.4 96 01/03/17 00:35 82 16 117/80 01/03/17 00:35 82 16 117/80 01/03/17 00:35 98.0 82 16 117/80 96 01/03/17 00:35 98.4 96 01/03/17 00:06 98.2 80 14 115/72 01/03/17 00:06 97 01/03/17 00:06 98.2 80 14 115/72 01/03/17 00:06 97 01/03/17 00:06 98.2 80 14 115/72 01/03/17 00:06 98.2 80 14 115/72 97 01/03/17 00:06 97 01/02/17 20:03 98.2 01/02/17 20:03 106 18 128/88 01/02/17 19:45 97.8 89 14 109/69 01/02/17 18:20 98.2 100 16 118/68 100 01/02/17 16:35 98.2 105 16 106/68 99 01/02/17 14:23 98.1 98 16 110/58 99 01/02/17 14:23 98.2 94 16 100/63 99 01/02/17 13:49 90 16 106/69 01/02/17 13:45 98.1 90 16 106/69 01/02/17 12:08 98.1 99 16 102/66 01/02/17 11:48 98.1 101 106/65 Result Diagram: 01/03/17 0634 12/31/16 0823 Objective Remarks GENERAL: Well-nourished, well-developed patient. She looks pale today CARDIOVASCULAR: Regular rate and rhythm without murmurs, gallops, or rubs. RESPIRATORY: Breath sounds equal bilaterally. No accessory muscle use. ABDOMEN/GI: Abdomen soft, non-tender, bowel sounds present. Incision: Clean, dry and intact. Fundus: Firm, non-tender at umbilicus. Fundus remains at or above umbilcus and very firm and bruised by her description abdomen soft with no wave, no guarding GENITOURINARY: Light to moderate bleeding. EXTREMITIES: No cyanosis, non-tender, without signs of DVT. +2 LE swelling Medications and IVs Current Medications Medications (Trade) Dose Ordered Sig/Destiny Route Start Time Stop Time Status Last Admin (Mylicon Chew) 80 mg QID PRN PO 12/31/16 21:45 01/03/17 03:26 (Tylenol) 650 mg Q6H PRN PO 12/31/16 21:45 (Motrin) 600 mg Q6H PRN PO 12/31/16 21:45 01/03/17 03:25 (Percocet 5-325 Mg) 1 tab Q4H PRN PO 12/31/16 21:45 01/03/17 08:27 (Percocet 5-325 Mg) 2 tab Q4H PRN PO 12/31/16 21:45 (Ambien) 5 mg HS PRN PO 12/31/16 21:45 (Zofran Inj) 4 mg Q6H PRN IV PUSH 12/31/16 21:45 01/01/17 07:58 Senna/Docusate Sodium 2 tab 2 tab Q12H PO 01/01/17 09:45 01/03/17 08:23 Iron Sucrose 200 mg/Sodium Chloride 110 ml @ 110 mls/hr DAILY IV 01/01/17 09:00 01/03/17 09:59 01/03/17 08:23 (Lr 1000 ml Inj) 1,000 ml @ 200 mls/hr Q5H IV 01/01/17 08:00 01/01/17 09:30 Assessment/Plan Assessment and Plan POD 3 Better post third unit. I suspect she had a couvalier uterus with bleeding into the muscle proper. This will resorb. watch one more day. Isabel Jalloh MD Jan 03, 2017 09:28
[2017-01-03] MEDS: LACTATED RINGER'S 1000 ML INJ 1,000 ML IV SCH (15:00)
[2017-01-03] MEDS: POLYETHYLENE GLYCOL 17 GM PKG PO SCH ×2 (15:25→21:50)
[2017-01-03 20:50] VITALS: BP 147/86; PULSE 90
[2017-01-03 20:51] VITALS: RESP 18; TEMP 97.9
[2017-01-03 22:00] VITALS: BP 128/78; PULSE 81; RESP 18
[2017-01-04] MEDS: IBUPROFEN 600 MG TAB PO PRN ×2 (02:58→09:50)
[2017-01-04] MEDS: SIMETHICONE 80 MG CHEWABLE TAB PO PRN (02:59)
[2017-01-04] MEDS: oxyCODONE/ACETAMINOPHEN 5 MG/325 MG TAB PO PRN ×3 (02:59→13:29)
[2017-01-04 04:25] LABS: BASOPHIL % 0.3 % (0.0-2.0); EOSINOPHIL # 0.2 TH/MM3 (0-0.4); EOSINOPHIL % 2.6 % (0.0-4.0); HEMATOCRIT 26.1 % (35.0-46.0); HEMO FLAGS DIFF FINAL; LYMPH % 13.4 % (9.0-44.0); LYMPHOCYTE # 1.2 TH/MM3 (1.0-4.8); MEAN CELL VOLUME 82.7 FL (80.0-100.0); MEAN CORPUSCULAR HEMOGLOBIN 27.7 PG (27.0-34.0); MEAN CORPUSCULAR HGB CONC 33.5 % (32.0-36.0); MONO % 4.3 % (0.0-8.0); NEUT % 79.4 % (16.0-70.0); PLATELET COUNT 182 TH/MM3 (150-450); RED BLOOD COUNT 3.15 MIL/MM3 (4.00-5.30); RED CELL DISTRIBUTION WIDTH 16.4 % (11.6-17.2); WHITE BLOOD COUNT 8.9 TH/MM3 (4.0-11.0)
[2017-01-04] MEDS: POLYETHYLENE GLYCOL 17 GM PKG PO SCH (07:41)
[2017-01-04 07:45] VITALS: BP 137/79; PULSE 74; RESP 18; TEMP 97.5
[2017-01-04] MEDS: LACTATED RINGER'S 1000 ML INJ 1,000 ML IV SCH (09:22)
[2017-01-04] MEDS: DOCUSATE SODIUM 50 MG/SENNA 8.6 MG TAB PO SCH (09:50)
--- NOTE | 2017-01-04 10:42 | HHI.OB ---
Subjective Post Operative Day: 4 Remarks POD#4; Stable, doing better, desires to go home later today if is cleared for discharge Objective Vitals/I&O Vital Signs Date Time Temp Pulse Resp B/P Pulse Ox O2 Delivery O2 Flow Rate FiO2 01/04/17 07:45 97.5 74 18 137/79 01/03/17 22:00 81 18 128/78 01/03/17 20:51 97.9 18 01/03/17 20:50 147/86 01/03/17 20:50 90 Result Diagram: 01/04/17 0403 12/31/16 0823 Objective Remarks GENERAL: Well-nourished, well-developed patient. She looks pale today CARDIOVASCULAR: Regular rate and rhythm without murmurs, gallops, or rubs. RESPIRATORY: Breath sounds equal bilaterally. No accessory muscle use. ABDOMEN/GI: Abdomen soft, non-tender, bowel sounds present. Incision: Clean, dry and intact. Fundus: Firm, non-tender at umbilicus. Fundus remains at or above umbilcus and very firm and bruised by her description abdomen soft with no wave, no guarding GENITOURINARY: Light to moderate bleeding. EXTREMITIES: No cyanosis, non-tender, without signs of DVT. +2 LE swelling Medications and IVs Current Medications Medications (Trade) Dose Ordered Sig/Destiny Route Start Time Stop Time Status Last Admin (Mylicon Chew) 80 mg QID PRN PO 12/31/16 21:45 01/04/17 02:59 (Tylenol) 650 mg Q6H PRN PO 12/31/16 21:45 (Motrin) 600 mg Q6H PRN PO 12/31/16 21:45 01/04/17 09:50 (Percocet 5-325 Mg) 1 tab Q4H PRN PO 12/31/16 21:45 01/04/17 07:41 (Percocet 5-325 Mg) 2 tab Q4H PRN PO 12/31/16 21:45 (Ambien) 5 mg HS PRN PO 12/31/16 21:45 (Zofran Inj) 4 mg Q6H PRN IV PUSH 12/31/16 21:45 01/01/17 07:58 Senna/Docusate Sodium 2 tab 2 tab Q12H PO 01/01/17 09:45 01/04/17 09:50 (Lr 1000 ml Inj) 1,000 ml @ 200 mls/hr Q5H IV 01/01/17 08:00 01/01/17 09:30 (Miralax) 17 gm BID PO 01/03/17 11:00 01/04/17 07:41 Assessment/Plan Assessment and Plan POD 4 Better , hgb up 8.7. Plan discharge after 4PM as long as infant discharged. Will f/u with Dr Rawls this week. Discharge Planning routine Attending Attestation seen by Zain Baugh MD Jan 04, 2017 10:42
[2017-01-04] MEDS ORDERED: Simethicone Chew PO (10:44)
[2017-01-04] MEDS ORDERED: IBUP-232 PO (10:44)
[2017-01-04] MEDS ORDERED: OXYC1TAB63 PO (10:44)
--- NOTE | 2017-01-04 10:44 | HHI.DCPOC ---
Discharge Care Plan Your Health Problems Are: Abdominal pain Fever, temperature>100.4 delivery Report Symptoms to Your Doctor -Temperature above 100.5 degrees -Redness, of incision or excessive or foul smelling drainage -Unusual pain or calf pain -Increased vaginal bleeding -Painful or difficulty urinating -Feelings of extreme sadness or anxiety after 2 weeks Goals to Promote Your Health * To prevent worsening of your condition and complications * To maintain your health at the optimal level Directions to Meet Your Goals Take your medications as prescribed Follow your dietary instruction Follow activity as directed Ensure plenty of rest for recovery Drink fluids for hydration Keep your appointments as scheduled Take your immunizations and boosters as scheduled If your symptoms worsen call your PCP, if no PCP go to Urgent Care Center or Emergency Room Smoking is Dangerous to Your Health. Avoid second hand smoke Call the 24-hour crisis hotline for domestic abuse at Zain Morillo MD Jan 04, 2017 10:44
== END 2017-01-04 16:56 | disposition home or self-care (01) | DRG 765 ==
LOC: HOBED 07:28 → H2EA 08:56 → H1EA 22:55
PROVIDERS: ADMIT Obstetrics & Gynecology; ATTEND Obstetrics & Gynecology
PROC: 10D00Z1 Extraction of Products of Conception, Low, Open Approach (ICD-10-PCS; principal; 2016-12-31)
PROC: 30233N1 Transfusion of Nonautologous Red Blood Cells into Peripheral Vein, Percutaneous Approach (ICD-10-PCS; 2017-01-02)
DX: O13.4 Gestational [pregnancy-induced] hypertension without significant proteinuria, complicating childbirth (principal); R71.0 Precipitous drop in hematocrit; O45.8X3 Other premature separation of placenta, third trimester; O99.02 Anemia complicating childbirth; O62.2 Other uterine inertia; Z37.0 Single live birth; Z3A.39 39 weeks gestation of pregnancy
CPT/HCPCS: 36430; 76937; 80053; 81001; 83615; 84112; 84550; 85014; 85018; 85025; 86850; 86900; 86901; 86920; 90707; 90715; 99285; J0131; J1100; J1756; J2274; J2405; J2590; J3010; J7120; P9016